=== PATIENT | female | born 1995 | race Caucasian/White ===

== ENCOUNTER 2017-03-09 12:53 | Emergency (ER) | payer MEDICAID ==
[~2017-03-09] VITALS: Ht 160 cm; Wt 69.5 kg
[~2017-03-09 12:53] MED LIST: IBUP-1542 PO; LORA10TA3 PO
[2017-03-09 13:28] VITALS: Ht 160 cm; Wt 69.5 kg
--- NOTE | 2017-03-09 14:01 | ERA ---
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 DENIES DYSURIA. 12 WKS PREG HPI The patient is a 22-year-old female, presenting with bilateral lower back pain radiating to bilateral groins that began last night. She has similar symptoms previously, denies vaginal bleeding,Fever, chills, neck pain, chest pain, vomiting, dysuria, diarrhea. She does not smoke nor drink, 3 para 2 Past medical/surgical history: None ROS All systems reviewed and are negative except as per history of present illness. Medications Home Meds Active Scripts Acetaminophen* (Tylenol*) 325 Mg Tablet, 2 TAB PO Q6 Y for PAIN AND OR ELEVATED TEMP, #20 TAB Prov:DEVANTE LOUISE MD 03/09/17 Loratadine* (Loratadine*) 10 Mg Tablet, 10 MG PO DAILY Y for NASAL CONGESTION, # 12 TAB Prov:ADORE ANN MD 05/14/16 Ibuprofen* (Motrin*) 600 Mg Tab, 600 MG PO Q8 Y for PAIN AND/OR INFLAMMATION, # 30 TAB Prov:ADORE ANN MD 05/14/16 Allergies Allergies: Coded Allergies: No Known Allergy (Unverified , 05/14/16) PMhx/Soc History of Surgery: No Anesthesia Reaction: No Hx Neurological Disorder: No Hx Respiratory Disorders: No Hx Cardiac Disorders: No Hx Psychiatric Problems: No Hx Miscellaneous Medical Probl: No Hx Alcohol Use: No Hx Substance Use: No Hx Tobacco Use: No Physical Exam Vitals Vital Signs Date Time Temp Pulse Resp B/P Pulse Ox O2 Delivery O2 Flow Rate FiO2 03/09/17 14:55 98.7 70 16 134/61 99 Room Air 03/09/17 13:28 99.3 77 16 122/58 98 Physical Exam Const: No acute distress. Head: Atraumatic. Eyes: Normal Conjunctiva. ENT: Normal External Ears, Nose and Mouth. Neck: Full range of motion. No meningismus. Resp: Clear to auscultation bilaterally. Cardio: Regular rate and rhythm. Abd: Soft, non distended, normal bowel sounds, non tender. Skin: No petechiae or rashes. Back: No midline or flank tenderness. Ext: No cyanosis, or edema. Neur: Awake and alert. No focal deficit Psych: Normal Mood and Affect. Procedures/MDM MEDICAL MAKING DECISION: The patient is a 32-year-old female, presenting with acute back pain, most likely round ligament pain. I do not suspect any intra- uterine abnormality or intra-abdominal pathology The differential diagnoses considered include but are not limited to cholelithiasis, cholecystitis, cystitis, pancreatitis, hepatitis, gastritis, peptic ulcer disease, gastric ulcer, appendicitis, diverticulitis, cholangitis, choledocholithiasis, partial small bowel obstruction. Departure Diagnosis: Primary Impression: Back pain Condition: Good Comments She was discharged with Tylenol I discussed the findings with the patient. I advised the patient to follow-up with the primary physician in about 1-2 days, sooner if needed and return if any concern. DEVANTE LOUISE MD Mar 09, 2017 14:01
[2017-03-09] MEDS ORDERED: ACET325T33 PO (14:08)
[2017-03-09 14:55] VITALS: BP 134/61; PULSE 70; RESP 16; TEMP 98.7
== END 2017-03-09 14:56 | disposition home or self-care (01) ==
LOC: FTE 12:53
DX: O99.89 Other specified diseases and conditions complicating pregnancy, childbirth and the puerperium (principal); M54.5 Low back pain; Z3A.12 12 weeks gestation of pregnancy
CPT/HCPCS: 99283

== ENCOUNTER 2017-05-11 08:10 | Emergency (ER) | payer MEDICAID ==
[~2017-05-11] VITALS: Ht 160 cm; Wt 74.1 kg
[~2017-05-11 08:10] MED LIST changes: +ACET325T33 PO
[2017-05-11 08:18] VITALS: Ht 160 cm; Wt 74.1 kg
[2017-05-11] MEDS ORDERED: ACETAMINOPHEN 325 MG TAB PO ONE (09:00)
[2017-05-11 09:16] LABS: URINE BLOOD (Dip) POC Negative (NEGATIVE)
[2017-05-11] MEDS ORDERED: ACET500C5 PO (10:31)
--- NOTE | 2017-05-11 10:33 | ERD ---
ER Documentation Chief Complaint Chief Complaint bilateral ear pain and sore throat x 2 days, 20 wks HPI This 22-year-old female presents with ear pain sore throat for 2 days. She is 20 weeks . She denies abdominal pain or vaginal bleeding. She denies any fevers, chest pain or shortness of breath. ROS All systems reviewed and are negative except as per history of present illness. Medications Home Meds Active Scripts Acetaminophen* (Tylophen*) 500 Mg Capsule, 1 CAP PO Q6H Y for PAIN AND OR ELEVATED TEMP, #15 CAP Prov:ZULEMA BECKER MD 05/11/17 Acetaminophen* (Tylenol*) 325 Mg Tablet, 2 TAB PO Q6 Y for PAIN AND OR ELEVATED TEMP, #20 TAB Prov:DEVANTE LOUISE MD 03/09/17 Loratadine* (Loratadine*) 10 Mg Tablet, 10 MG PO DAILY Y for NASAL CONGESTION, # 12 TAB Prov:ADORE ANN MD 05/14/16 Ibuprofen* (Motrin*) 600 Mg Tab, 600 MG PO Q8 Y for PAIN AND/OR INFLAMMATION, # 30 TAB Prov:ADORE ANN MD 05/14/16 Allergies Allergies: Coded Allergies: No Known Allergy (Unverified , 05/14/16) PMhx/Soc Medical and Surgical Hx: pt denies Medical Hx History of Surgery: Yes (normal delivery) Anesthesia Reaction: No Hx Neurological Disorder: No Hx Respiratory Disorders: No Hx Cardiac Disorders: No Hx Psychiatric Problems: No Hx Miscellaneous Medical Probl: No Hx Alcohol Use: No Hx Substance Use: No Hx Tobacco Use: No Smoking Status: Never smoker Physical Exam Vitals Vital Signs Date Time Temp Pulse Resp B/P Pulse Ox O2 Delivery O2 Flow Rate FiO2 05/11/17 08:18 97.6 86 18 122/70 97 Physical Exam Const: [], [id number]. Head: Atraumatic Eyes: Normal Conjunctiva ENT: Normal External Ears, Nose and Mouth. TMs and oropharynx grossly normal. Neck: Full range of motion..~ No meningismus. Resp: Clear to auscultation bilaterally Cardio: Regular rate and rhythm, no murmurs Abd: Soft, non tender, non distended. Normal bowel sounds Skin: No petechiae or rashes Back: No midline or flank tenderness Ext: No cyanosis, or edema Neur: Awake and alert Psych: Normal Mood and Affect Results 24 hrs Laboratory Tests Test 05/11/17 09:15 Bedside Urine pH (LAB) 7.5 Bedside Urine Protein (LAB) Negative Bedside Urine Glucose (UA) Negative Bedside Urine Ketones (LAB) Negative Bedside Urine Blood Negative Bedside Urine Nitrite (LAB) Negative Bedside Urine Leukocyte Esterase (L Negative Current Medications Medications (Trade) Dose Ordered Sig/Radhika Route PRN Reason Start Time Stop Time Status Last Admin Dose Admin Acetaminophen (Tylenol Tab) 650 mg ONCE ONCE PO 05/11/17 09:00 05/11/17 09:01 DC 05/11/17 09:05 Procedures/MDM Patient presents with sore throat and ear pain for 2 days with essentially normal exam. Rapid strep is negative. She will treated with Tylenol, further observation at home and return precautions. There is no signs or symptoms to suggest complications of , pneumonia, hypoxemia, respiratory distress. The patient was stable with no new complaints during the ER course. Clinically , there is no current evidence to suggest meningitis, sepsis, acute abdomen, pneumonia, acute coronary syndrome, pulmonary embolism, or any other emergent condition appearing to require further evaluation or hospitalization. The patient should certainly return for any new or worsening symptoms per the aftercare instructions. They should otherwise follow-up with her primary care doctor for reevaluation this week. Departure Diagnosis: Primary Impression: URI, acute Condition: Stable Patient Instructions: Uri, Viral, No Abx (Adult) Additional Instructions: Strep test negative. Likely viral URI. Recommend Tylenol only and further observation and return for new or worsening symptoms or primary care doctor. ZULEMA BECKER MD May 11, 2017 10:33
[2017-05-11 10:49] VITALS: BP 118/68; PULSE 74; RESP 18; TEMP 97.6
== END 2017-05-11 10:49 | disposition home or self-care (01) ==
LOC: FTE 08:10
DX: J06.9 Acute upper respiratory infection, unspecified (principal)
CPT/HCPCS: 81003; 87880; Z7502; Z7610; 99283

== ENCOUNTER 2017-08-06 17:23 | Outpatient (CLI) | END 2017-08-06 23:59 | disposition home or self-care (01) ==

== ENCOUNTER 2017-08-07 20:39 | Outpatient (CLI) | END 2017-08-08 00:36 | disposition home or self-care (01) ==

== ENCOUNTER 2017-08-20 10:33 | Outpatient (CLI) | END 2017-08-20 13:39 | disposition home or self-care (01) ==

== ENCOUNTER 2017-09-02 18:04 | Outpatient (CLI) | END 2017-09-02 21:36 | disposition home or self-care (01) ==

== ENCOUNTER 2017-09-10 16:40 | Inpatient (IN) | END 2017-09-14 12:00 | disposition home or self-care (01) | DRG 775 ==